=== PATIENT | female | born 1995 | race Caucasian/White ===

== ENCOUNTER 2018-05-18 16:46 | Emergency (ER) | payer MEDICAID, OTHER ==
[~2018-05-18] VITALS: Ht 167.6 cm; Wt 73.2 kg
[~2018-05-18 16:46] MED LIST: CIPR500T4 PO; HYDR-3498 PO; MECL12.574 PO; NAPR-985 PO; ONDA4TAB8 PO; PENI500T PO; PHEN-537 PO
[2018-05-18 16:47] VITALS: Ht 167.6 cm; Wt 73.2 kg
[2018-05-18] MEDS ORDERED: FLUC150T PO (20:12)
[2018-05-18] MEDS ORDERED: ACET1TAB40 PO (20:12)
--- NOTE | 2018-05-18 20:22 | ERD ---
ER Documentation Chief Complaint Chief Complaint pelvic pain x yesterday denies vaginal bleeding HPI 22-year-old female presents with burning vaginal pain for last few days. She states it feels like she has "hot sauce "in her vagina. She denies any vaginal discharge. He said she saw her primary doctor who is treating her with Keflex for unspecified infection. She denies . She does have an IUD. She states that her , her primary sexual partner was recently tested and had negative workup for STDs. ROS All systems reviewed and are negative except as per history of present illness. Medications Home Meds Active Scripts Nitrofurantoin Monohyd Macrocr* (Macrobid*) 100 Mg Capsr, 100 MG PO BID for 7 Days, CAP Prov:YELITZA BAER MD 05/18/18 Acetaminophen with Codeine (Acetaminophen-Cod #3 Tablet) 1 Each Tablet, 1 TAB PO Q6H PRN for PAIN, #7 TAB Prov:YELITZA BAER MD 05/18/18 Fluconazole* (Diflucan*) 150 Mg Tablet, 150 MG PO ONCE, #2 TAB Take 1 now and repeat in 1 week Prov:YELITZA BAER MD 05/18/18 Ondansetron Hcl* (Zofran*) 4 Mg Tablet, 4 MG PO Q6H for NAUSEA AND/OR VOMITING, #15 TAB Prov:CRISTINE CORONA NP 02/20/16 Meclizine Hcl* (Antivert*) 12.5 Mg Tab, 12.5 MG PO Q6H PRN for DIZZINESS, #20 TAB Prov:CRISTINE CORONA NP 02/20/16 Penicillin V Potassium* (Penicillin V K*) 500 Mg Tab, 500 MG PO QID for 7 Days, TAB Prov:BRISA HERMAN NP 04/09/15 Hydrocodone Bit-Acetaminophen* (Cincinnatus*) 5-325 Mg Tab, 1 TAB PO Q6 PRN for PAIN, #7 TAB Prov:BRISA HERMAN NP 04/09/15 Naproxen* (Naprosyn*) 500 Mg Tablet, 500 MG PO BID PRN for PAIN AND/OR INFLAMMATION, #14 TAB Prov:HILLARY LARA DO 01/11/15 Phenazopyridine Hcl* (Pyridium*) 100 Mg Tab, 100 MG PO TID PRN for burning, #6 TAB Prov:HILLARY LARA DO 01/11/15 Ciprofloxacin Hcl* (Ciprofloxacin Hcl*) 500 Mg Tablet, 500 MG PO BID for 5 Days, TAB Prov:HILLARY LARA DO 01/11/15 Allergies Allergies: Coded Allergies: No Known Drug Allergies (Verified Allergy, Mild, 01/11/15) PMhx/Soc History of Surgery: Yes () Anesthesia Reaction: No Hx Neurological Disorder: No (VERITGO ) Hx Respiratory Disorders: No Hx Cardiac Disorders: No Hx Psychiatric Problems: No Hx Miscellaneous Medical Probl: Yes (IUD) Hx Alcohol Use: No Hx Substance Use: No Hx Tobacco Use: No FmHx Family History: No diabetes, No coronary disease, No other Physical Exam Vitals Vital Signs Date Temp Pulse Resp B/P (MAP) Pulse Ox O2 O2 Flow FiO2 Time Delivery Rate 05/18/18 98.2 82 18 119/58 98 16:47 (78) Physical Exam Const: No acute distress Head: Atraumatic Eyes: Normal Conjunctiva ENT: Normal External Ears, Nose and Mouth. Neck: Full range of motion. No meningismus. Resp: Clear to auscultation bilaterally Cardio: Regular rate and rhythm, no murmurs Abd: Soft, non tender, non distended. Normal bowel sounds. Vaginal exam with mobility manager shows irritation and white curdy discharge in the vaginal vault. She has no cervical motion tenderness. No discharge appreciated from the office. No adnexal masses or tenderness. Skin: No petechiae or rashes Back: No midline or flank tenderness Ext: No cyanosis, or edema Neur: Awake and alert Psych: Normal Mood and Affect Results 24 hrs Laboratory Tests Test 05/18/18 19:18 05/18/18 19:21 Urine Color YELLOW Urine Clarity CLOUDY Urine pH 6.0 Urine Specific [place] 1.020 Urine Ketones NEGATIVE mg/dL Urine Nitrite NEGATIVE mg/dL Urine Bilirubin NEGATIVE mg/dL Urine Urobilinogen NEGATIVE mg/dL Urine Leukocyte Esterase 2+ Sherry/ul Urine Microscopic RBC 23 /HPF Urine Microscopic WBC 153 /HPF Urine Squamous Epithelial Cells FEW /HPF Urine Bacteria FEW /HPF Urine Hemoglobin 2+ mg/dL Urine Glucose NEGATIVE mg/dL Urine Total Protein NEGATIVE mg/dl POC Beta HCG, Qualitative NEGATIVE Procedures/MDM Pelvic ultrasound shows IUD in the lower uterine segment. No adnexal masses or significant acute abnormalities. HCG is negative. HCG negative. Urine shows white blood cells and leukocyte esterase and sent for culture. Patient will be treated with Macrobid for findings of UTI although uncertain if cause of vaginal burning. She has no signs or symptoms of appendicitis, acute surgical abdomen, additional concerning signs or symptoms. The patient was stable with no new complaints during the ER course. Clinically, there is no current evidence to suggest meningitis, sepsis, acute abdomen, pneumonia, stroke, acute coronary syndrome, pulmonary embolism, aortic dissection or any other emergent condition appearing to require further evaluation or hospitalization. Patient counseled regarding my diagnostic impression and care plan. Prior to discharge all questions answered. Pt agrees with treatment plan and understands strict return precautions. Pt is instructed to follow up with primary care provider within 24-48 hours. Precautionary instructions provided including instructions to return to the ER if not improving or for any worsening or changing symptoms or concerns. Departure Diagnosis: Primary Impression: Vaginitis Chronicity: acute Qualified Codes: N76.0 - Acute vaginitis Additional Impression: Acute pain in female pelvis Condition: Stable Patient Instructions: Vaginal Infection: Yeast (Candidiasis), Pelvic Pain, Unknown Cause Additional Instructions: STD testing should return in the next week. We will treat for yeast infection. Follow-up with primary doctor for further evaluation and treatment. Recheck otherwise for new or worsening symptoms. YELITZA BAER MD May 18, 2018 20:22
[2018-05-18] MEDS ORDERED: NITR-58 PO (20:37)
[2018-05-18 21:03] VITALS: BP 116/62; PULSE 79; RESP 19
== END 2018-05-18 21:04 | disposition home or self-care (01) ==
LOC: FTE 16:46
DX: N76.0 Acute vaginitis (principal)
CPT/HCPCS: 76830; 76856; 81001; 81025; 87086; 87591; Z7502